=== PATIENT | male | born 1985 | race Caucasian/White ===

== ENCOUNTER 2016-08-16 14:30 | Inpatient (IN) | payer SELFPAY ==
[~2016-08-16] VITALS: Ht 165.1 cm; Wt 71.8 kg
[2016-08-16 14:33] VITALS: BP 121/85
--- NOTE | 2016-08-16 14:36 | NUR ---
PATIENT AMBULATED TO ER BED 8.
--- NOTE | 2016-08-16 14:37 | NUR ---
31/M BIB FAMILY C/O CHEST PAIN x 2 WEEKS. PAIN 4/10 TIGHTNESS NON-RADIATING. PT STATES HE WAS DRINKING BEER THIS AM AND WAS USING SOME RECREATIONAL DRUGS (COCAINE) THIS AM ALSO.DENIES N/V/D; SKIN IS PINK/WARM/DRY; AAOX4 WITH EVEN AND STEADY GAIT; LUNGS CLEAR BL; HR EVEN AND REGULAR; PT DENIES ANY FEVER, CP, SOB, OR COUGH AT THIS TIME; PATIENT STATES PAIN OF 8/10 AT THIS TIME; VSS; PATIENT POSITIONED FOR COMFORT; HOB ELEVATED; BEDRAILS UP X2; BED DOWN. ER MD MADE AWARE OF PT STATUS.
[2016-08-16] MEDS ORDERED: NACL 0.9% 1,000 ML IV ONE (14:46)
[2016-08-16] MEDS ORDERED: MULTIVITAMIN-12 10 ML, THIAMINE 100 MG, MAGNESIUM SULFATE 50% 2,000 MG, FOLIC ACID 5 MG... IV ONE ×5 (14:46)
--- NOTE | 2016-08-16 14:46 | NUR ---
Patient being evaluated by physician at bedside.
[2016-08-16 15:24] LABS: BASOPHILS # (AUTO) 0.3 K/uL (0.00-0.22); BASOPHILS % (AUTO) 2.6 % (0.0-2.0); EOSINOPHILS # (AUTO) 0.2 K/uL (0-0.4); EOSINOPHILS % (AUTO) 1.4 % (0.0-4.0); HEMATOCRIT 50.6 % (36-52); HEMOGLOBIN 16.7 g/dL (12.0-18.0); LYMPHOCYTES # (AUTO) 2.2 K/uL (2.0-11.5); LYMPHOCYTES % (AUTO) 17.4 % (20.5-51.1); MEAN CORPUSCULAR HEMOGLOBIN 31 pg (27-31); MEAN CORPUSCULAR HGB CONC 33 g/dL (33-37); MEAN CORPUSCULAR VOLUME 94 fL (80-94); MONOCYTES # (AUTO) 0.8 K/uL (0.8-1.0); MONOCYTES % (AUTO) 6.6 % (1.7-9.3); NEUTROPHILS # (AUTO) 9.1 K/uL (1.8-7.7); PLATELET COUNT (AUTO) 278 K/uL (140-450); RED BLOOD CELL COUNT(AUTO) 5.38 MIL/uL (4.20-6.10); RED CELL DISTRIBUTION WIDTH 12.2 % (11.6-13.7); WHITE BLOOD COUNT (AUTO) 12.6 K/uL (4.8-10.8)
[2016-08-16 15:36] LABS: ANION GAP 15.4 (8-16); CALCIUM 9.2 mg/dL (8.5-10.1); CARBON DIOXIDE 26.2 mmol/L (21-32); POTASSIUM 3.6 mmol/L (3.5-5.1)
[2016-08-16 15:42] LABS: ALBUMIN 4.1 g/dL (3.4-5.0); BILIRUBIN,DIRECT 0.1 mg/dL (0.0-0.3); TOTAL BILIRUBIN 0.4 mg/dL (0.0-1.0); TOTAL PROTEIN, SERUM 8.6 g/dL (6.4-8.2)
[2016-08-16 15:45] LABS: INR 1.2 (0.8-1.2); PARTIAL THROMBOPLASTIN TIME 28.1 secs (22-35.6); PROTHROMBIN TIME 10.9 secs (10.8-13.4)
[2016-08-16] MEDS ORDERED: LORazepam 2 MG/ML VIAL IVP ONE (16:50)
[2016-08-16] MEDS ORDERED: ACETAMINOPHEN 325 MG TAB PO PRN (17:30)
[2016-08-16] MEDS ORDERED: LORazepam 2 MG/ML VIAL IVP PRN (17:30)
[2016-08-16] MEDS ORDERED: ONDANSETRON 4 MG/2 ML VIAL IVP PRN (17:30)
[2016-08-16] MEDS ORDERED: ASPIRIN 81 MG TAB.CHEW PO SCH (17:40)
[2016-08-16 17:47] LABS: APPEARANCE,URINE CLEAR (CLEAR); BILIRUBIN,URINE NEGATIVE (NEGATIVE); BLOOD, URINE NEGATIVE (NEGATIVE); COLOR,URINE YELLOW (YELLOW); LEUKOCYTE ESTERASE ,URINE NEGATIVE (NEGATIVE); NITRITE, URINE NEGATIVE (NEGATIVE); PH,URINE 5.5 (5.0-9.0); PROTEIN,URINE NEGATIVE (NEGATIVE); UGLUCOSE NEGATIVE (NEGATIVE); UROBILINOGEN,URINE 0.2 EU/dL (0.2 - 1)
[2016-08-16 17:55] LABS: BACTERIA,URINE 1-9 (FEW) /HPF (None Seen); RBC,URINE NONE SEEN /HPF (0-5); SQUAMOUS EPITHELIAL CELL,UR 0-3 (FEW) /LPF (0-3 (FEW)); WBC,URINE 0-5 (RARE) /HPF (0-5)
[2016-08-16 17:56] LABS: AMPHETAMINE, URINE NEG. ng/ml (NEG <=1000); BARBITURATE, URINE NEG. ng/ml (NEG <=200); BENZODIAZEPINE, URINE NEG. ng/mL (NEG <=200); CANNABINOID, URINE NEG. ng/mL (NEG <=50); COCAINE, URINE POS. ng/mL (NEG <=300); OPIATE, URINE NEG. ng/mL (NEG <=2000); PHENCYCLIDINE SCREEN,URINE NEG. ng/mL (NEG <=25)
[2016-08-16] MEDS: LORazepam 1 MG TAB PO SCH ×2 (18:00→23:13)
--- NOTE | 2016-08-16 18:18 | NUR ---
CALLED REPORT TO MARIANELA NASH
--- NOTE | 2016-08-16 18:30 | NUR ---
Patient will be admitted to care of DR MEZA. Admited to TELE. Will go to [id number]. Belongings list completed. Report to MARIANELA NASH.
[2016-08-16 18:40] VITALS: BP 129/86
--- NOTE | 2016-08-16 18:40 | NUR ---
PT ARRIVED ON UNIT VIA [facility]. RECEIVED REPORT FROM REJI BEAR. PT IS AAOX4 BUT LETHARGIC. PT AMB TO BED FROM [facility]. NO S/S OF DISTRESS NOTED. NO C/O PAIN AT THIS TIME. PT ON ROOM AIR. SKIN IS INTACT. IV LINE NOTED AT L AC 20 GAUGE WITH IV FLUID INFUSING WELL. PT PUT ON TELE MONITORING. BED LOWERED WITH CALL LIGHT WITHIN REACH. WILL CONTINUE TO MONITOR.
--- NOTE | 2016-08-16 18:52 | NUR ---
SCHEDULED MEDICATIONS NOT ADMINISTERED. PT IS TOO LETHARGIC.
--- NOTE | 2016-08-16 19:30 | NUR ---
GAVE REPORT TO NIGHT NURSE AT BEDSIDE. PT ENDORSED IN STABLE CONDITION.
--- NOTE | 2016-08-16 19:30 | NUR ---
RECEIVED REPORT FROM RANDY BEAR AT BEDSIDE. Admitted from [facility] with chief complaint of CHEST PAIN. A 31 y/o. Male, Appropriate. PT IS VERY DROWSY AT THIS TIME BUT ABLE TO ANSWER QUESTIONS AND CAN FOLLOW COMMANDS. INITIAL ASSESSMENT DONE. NO S/S OF RESPIRATORY DISTRESS OR SOB NOTED. NO C/O PAIN OR ANY DISCOMFORT AT THIS TIME. SKIN IS INTACT CLEAN DRY AND WARM TO TOUCH. PLAN OF CARE REVIEWED TO PT AND VERBALIZED UNDERSTANDING. oriented to call light, bed, phone,television, bathroom, smoking policy, visiting hours, procedures, ID bracelet on. Belongings list checked. CALL LIGHT WITHIN REACH. WILL CONTINUE TO MONITOR.
[2016-08-16] MEDS: NACL 0.9% 1,000 ML IV SCH (19:37)
[2016-08-16 20:00] VITALS: BP 125/79
[2016-08-16] MEDS: METOPROLOL 25 MG TAB PO SCH (20:18)
[2016-08-16] MEDS ORDERED: SIMVASTATIN 10 MG TAB PO SCH (21:00)
[2016-08-16 23:41] LABS: CHOL/HDL RATIO 3.2 (1-4.5)
[2016-08-17] VITALS: BP 119/79
[2016-08-17 00:08] LABS: FREE T4 (FREE THYROXINE) 1.14 ng/dL (0.76-1.46); THYROID STIMULATING HORMONE 0.51 uIU/mL (0.34-3.76)
--- NOTE | 2016-08-17 00:30 | NUR ---
PT IS SLEEPING RIGHT NOW BUT EASILY AROUSABLE. NO S/S OF ANY DISCOMFORT AT THIS TIME. ALL NEEDS ARE ATTENDED. CALL LIGHT WITHIN REACH. WILL CONTINUE TO MONITOR.
[2016-08-17] MEDS: NACL 0.9% 1,000 ML IV SCH (02:43)
[2016-08-17 04:00] VITALS: BP 123/79
[2016-08-17] MEDS: LORazepam 1 MG TAB PO SCH ×2 (05:21→12:00)
--- NOTE | 2016-08-17 05:30 | NUR ---
AM CARE RENDERED. BED LINEN CHANGED. INSTRUCTED PT TO REPOSITION. KEPT CLEAN AND DRY. CALL LIGHT WITHIN REACH. WILL CONTINUE TO MONITOR.
[2016-08-17 06:48] LABS: MAGNESIUM 2.3 mg/dL (1.8-2.4); PHOSPHORUS 3.6 mg/dL (2.5-4.9)
[2016-08-17 06:50] LABS: CALCIUM 8.5 mg/dL (8.5-10.1); CARBON DIOXIDE 29.2 mmol/L (21-32); CREATININE 0.9 mg/dL (0.6-1.3); POTASSIUM 4.2 mmol/L (3.5-5.1)
[2016-08-17 06:53] LABS: BASOPHILS # (AUTO) 0.2 K/uL (0.00-0.22); BASOPHILS % (AUTO) 1.4 % (0.0-2.0); EOSINOPHILS # (AUTO) 0.1 K/uL (0-0.4); EOSINOPHILS % (AUTO) 1.3 % (0.0-4.0); HEMATOCRIT 45.6 % (36-52); HEMOGLOBIN 15.3 g/dL (12.0-18.0); LYMPHOCYTES # (AUTO) 2.3 K/uL (2.0-11.5); LYMPHOCYTES % (AUTO) 21.4 % (20.5-51.1); MEAN CORPUSCULAR HEMOGLOBIN 31 pg (27-31); MEAN CORPUSCULAR HGB CONC 34 g/dL (33-37); MEAN CORPUSCULAR VOLUME 94 fL (80-94); MONOCYTES % (AUTO) 9.6 % (1.7-9.3); NEUTROPHILS # (AUTO) 7.2 K/uL (1.8-7.7); NEUTROPHILS % (AUTO) 66.3 % (42.2-75.2); PLATELET COUNT (AUTO) 240 K/uL (140-450); RED BLOOD CELL COUNT(AUTO) 4.86 MIL/uL (4.20-6.10); RED CELL DISTRIBUTION WIDTH 12.4 % (11.6-13.7); WHITE BLOOD COUNT (AUTO) 10.8 K/uL (4.8-10.8)
--- NOTE | 2016-08-17 07:27 | NUR ---
PT HAS NO S/S OF ANY DISCOMFORT. PLAN OF CARE ENDORSE TO AM SHIFT NURSE FOR CONTINUITY OF CARE.
--- NOTE | 2016-08-17 07:30 | NUR ---
RECEIVED ON BED AAOX4. NO SOB NOTED. NO C/O PAIN AT THIS TIME. IV TO LT AC PATENT AND INTACT. CHEST CLEAR. ABDOMEN SOFT, BOWEL SOUNDS PRESENT. NO EDEMA NOTED. INSTRUCTED PT TO CALL FOR ASSISTANCE, CALL LIGHT WITHIN REACH, PT VERBALIZED UNDERSTANDING.
[2016-08-17 08:00] VITALS: BP 140/96
[2016-08-17] MEDS ORDERED: LISINOPRIL 5 MG TAB PO SCH (09:00)
[2016-08-17] MEDS ORDERED: FOLIC ACID 1 MG TAB PO SCH (09:00)
[2016-08-17] MEDS ORDERED: THIAMINE 100 MG TAB PO SCH (09:00)
[2016-08-17] MEDS ORDERED: MULTIVITAMIN 1 TAB PO SCH (09:00)
[2016-08-17] MEDS ORDERED: DOCUSATE SODIUM 100 MG GELCAP PO SCH (09:00)
[2016-08-17] MEDS: METOPROLOL 25 MG TAB PO SCH (09:18)
[2016-08-17 12:00] VITALS: BP 118/68
--- NOTE | 2016-08-17 12:30 | NUR ---
SCHEDULED ATIVAN PO NOT GIVEN, PT SLEEPING COMFORTABLY. NO SIGNS AND SYMPTOMS OF ANXIETY,NO AGITATION, NO ALCOHOL WITHDRAWAL NOTED.
[2016-08-17] MEDS ORDERED: [UNRECOGNIZED DRUG - CODE] PO (13:25)
[2016-08-17] MEDS ORDERED: ATI.5 PO (13:25)
[2016-08-17] MEDS ORDERED: THIA100T34 PO (13:25)
[2016-08-17] MEDS ORDERED: FOLI1TAB90 PO (13:25)
--- NOTE | 2016-08-17 14:50 | NUR ---
discharge instructions and prescriptions given to pt which verbalized full understanding of the instructions given and the need to follow up with pcp in 3-5 days. Arm band and IV removed, cannula tip intact.
--- NOTE | 2016-08-17 15:00 | NUR ---
pt escorted out, ambulatory. no complaints made. pt is d/c'd home with .
== END 2016-08-17 15:00 | disposition home or self-care (01) | DRG 897 ==
LOC: MED 14:30 → MTU 17:26
PROVIDERS: ADMIT Student in an Organized Health Care Education/Training Program; ATTEND Student in an Organized Health Care Education/Training Program
DX: F14.10 Cocaine abuse, uncomplicated (principal); R00.0 Tachycardia, unspecified; F10.129 Alcohol abuse with intoxication, unspecified; Y90.6 Blood alcohol level of 120-199 mg/100 ml; D72.829 Elevated white blood cell count, unspecified; Z71.51 Drug abuse counseling and surveillance of drug abuser
CPT/HCPCS: 36415; 71010; 80048; 80053; 80076; 80305; 81001; 82553; 83036; 83690; 83735; 83880; 84100; 84439; 84443; 84484; 85025; 85610; 85730; 87081; 93005; 96374; 99285; A9153; C1758; G0482; J2060; J3411; J3475; J3490; J7030; Q0092